=== PATIENT | male | born 1995 | race African-American/Black ===

== ENCOUNTER 2019-08-05 10:35 | Emergency (ER) | payer MEDICAID ==
[~2019-08-05] VITALS: Ht 185.4 cm; Wt 84.8 kg
--- NOTE | 2019-08-05 10:43 | NUR ---
BIB [facility] 86 FROM URGENT CARE: C/O BACK PAIN, PER EMS MOTHER STATES PATIENT USES DRUG, PER EMS, LAST USE OF HEROIN 2 DAYS AGO, NOTED PALE AND CLAMMY, DIAPHORETIC. TO ER BED 11, HOOKED TO MONITOR, DR SHIPMAN AT BEDSIDE
--- NOTE | 2019-08-05 10:56 | NUR ---
spoke with mother freddie, states pt told urgent care he took fentanyl. pt denies taking drugs. Callback number [phone]
[2019-08-05] MEDS ORDERED: LORAZEPAM INJ 2 MG/ML VIAL IM ONE (11:30)
[2019-08-05] MEDS ORDERED: LORAZEPAM INJ 2 MG/ML VIAL ONE (11:45)
--- NOTE | 2019-08-05 11:49 | NUR ---
Patient discharged to home in stable condition. Written and verbal after care instructions given. Patient verbalizes understanding of instruction.
--- NOTE | 2019-08-05 11:51 | NUR ---
ATTEMPTED TO CALL MOTHER WINNIE, NO ANSWER, LEFT VM THAT PATIENT WAS DISCHARGED.
[2019-08-05 12:59] VITALS: BP 113/69
== END 2019-08-05 11:50 | disposition home or self-care (01) ==
LOC: ER 10:40
DX: F11.23 Opioid dependence with withdrawal (principal)
CPT/HCPCS: 96372; 99283; J2060

== ENCOUNTER 2019-12-04 09:37 | Emergency (ER) | payer MEDICAID ==
[~2019-12-04] VITALS: Ht 177.8 cm; Wt 70.3 kg
--- NOTE | 2019-12-04 09:52 | NUR ---
dr lyle at bedside for eval.
[2019-12-04 10:02] VITALS: BP 121/71
--- NOTE | 2019-12-04 10:02 | NUR ---
PT. VERBALIZED UNDERSTANDING OF AFTERCARE INSTRUCTIONS.Patient discharged to home in stable condition. Written and verbal after care instructions given. Patient verbalizes understanding of instruction.
== END 2019-12-04 10:02 | disposition home or self-care (01) ==
LOC: ER 09:42
DX: F11.10 Opioid abuse, uncomplicated (principal); R53.1 Weakness

== ENCOUNTER 2019-12-06 15:44 | Emergency (ER) | payer MEDICAID ==
[~2019-12-06] VITALS: Ht 182.9 cm; Wt 78.9 kg
--- NOTE | 2019-12-06 16:10 | NUR ---
PT C/O ABD PAIN & VOMITING X 3 DAYS. - DIARRHEA. PT AAOX4, VSS. RR EVEN & UNLABORED. DENIES CP, SOB, DIZZINESS, FEVER, WEAKNESS @ THIS TIME. DR. NATION @ BS FOR EVAL. WILL CONT TO MONITOR.
[2019-12-06] MEDS ORDERED: KETOROLAC TROMETHAMINE INJ 30 MG/ML VIAL ONE (16:23)
[2019-12-06] MEDS ORDERED: DICYCLOMINE HCL INJ 20 MG/2 ML AMPUL IM ONE ×2 (16:23→16:30)
[2019-12-06] MEDS ORDERED: ONDANSETRON 4 MG TAB.RAPDIS ONE (16:24)
[2019-12-06] MEDS ORDERED: KETOROLAC TROMETHAMINE INJ 60 MG/2 ML VIAL IM ONE (16:30)
[2019-12-06] MEDS ORDERED: ONDANSETRON 4 MG TAB.RAPDIS SL ONE (16:30)
--- NOTE | 2019-12-06 16:38 | NUR ---
MEDICATED ORDERED PER ERMD ORDER. PT KATELIN WELL.
--- NOTE | 2019-12-06 16:53 | NUR ---
Patient discharged to home in stable condition. Written and verbal after care instructions given. Patient verbalizes understanding of instruction.
[2019-12-06 16:55] VITALS: BP 123/77
== END 2019-12-06 16:55 | disposition home or self-care (01) ==
LOC: ER 15:44
DX: T62.8X1A Toxic effect of other specified noxious substances eaten as food, accidental (unintentional), initial encounter (principal); R10.84 Generalized abdominal pain; R11.10 Vomiting, unspecified; Y92.89 Other specified places as the place of occurrence of the external cause
CPT/HCPCS: 96372 ×2; 99284; J0500; J1885; Q0162